=== PATIENT | female | born 1990 | race Two or more races ===

== ENCOUNTER 2023-12-05 19:18 | Emergency (ER) | payer OTHER ==
[~2023-12-05] VITALS: Ht 152.4 cm; Wt 59.4 kg
[2023-12-05] MEDS ORDERED: LACTOBACILLUS ACIDOPHILUS 1 CAP CAP PO ONE (20:15)
[2023-12-05] MEDS ORDERED: FAMOTIDINE/PF 20 MG/2 ML VIAL IV ONE (20:15)
[2023-12-05] MEDS ORDERED: ONDANSETRON HCL 2 MG/ML VIAL IV ONE (20:15)
[2023-12-05] MEDS ORDERED: DEXTROSE 5 % AND 0.9 % NACL 500 ML IV ONE (20:15)
[2023-12-05 20:34] LABS: HEMATOCRIT 32.1 % (36.0-45.00); HEMOGLOBIN 10.4 g/dL (12.0-15.00); MEAN CELL VOLUME 79.8 fL (80.00-100.00); MEAN CORPUSCULAR HEMOGLOBIN 25.8 pg (27.00-32.0); MEAN CORPUSCULAR HGB CONC 32.4 g/dl (32.0-36.0); PLATELET COUNT 180 K/uL (150-450); RED BLOOD COUNT 4.02 M/uL (4.00-6.00); RED CELL DISTRIBUTION WIDTH 13.5 % (11.5-14.5)
[2023-12-05 21:01] LABS: ALBUMIN 2.8 gm/dL (3.4-5.0); BILIRUBIN TOTAL 1.02 mg/dL (0.3-1.2); CALCIUM 8.7 mg/dL (8.5-10.1); CREATININE SERUM 0.58 mg/dL (0.55-1.02); GFR 121.25; GLOBULINA 4.1 G/DL (2.4-3.5); POTASSIUM 3.8 mEq/L (3.5-5.1); TOTAL PROTEIN 6.9 gm/dL (6.4-8.2)
[2023-12-05 21:09] LABS: PH,URINE 5.5 (5.0-8.0); URINE APPEARANCE Clear; URINE BILIRRUBIN Negative (NEGATIVE); URINE BLOOD Negative; URINE COLOR Yellow; URINE GLUCOSE Negative (NEGATIVE); URINE LEUKOCYTE Trace; URINE NITRATE Negative; URINE PROTEIN 30 (NEGATIVE)
[2023-12-05 21:12] LABS: URINE BACTERIA 597.2 uL (0.0-1933); URINE EPITHELIAL CELLS 33.9 uL (0.0-38.8); URINE RBC 2.1 uL (0.0-20.8); URINE WBC 18.6 uL (0.0-23.2)
[2023-12-05] MEDS ORDERED: PEPCID AC20 MG PO (23:21)
== END 2023-12-05 23:36 ==
LOC: ER 19:18
PROVIDERS: Nurse Practitioner Family
DX: O99.619 Diseases of the digestive system complicating pregnancy, unspecified trimester (principal); Z3A.34 34 weeks gestation of pregnancy; R19.7 Diarrhea, unspecified; K92.0 Hematemesis; K52.89 Other specified noninfective gastroenteritis and colitis; K92.89 Other specified diseases of the digestive system